=== PATIENT | female | born 1970 | race Caucasian/White ===

== ENCOUNTER → 2017-11-30 | Outpatient (CLI) | payer OTHER ==
--- NOTE | 2017-11-30 10:46 | DIAGNOSTIC IMAGING REPORT ---
SOFT TISS HEAD/NECK-THYROID HISTORY: Thyroid nodule THYROID NODULE COMPARISON: Thyroid ultrasound 12/22/2014 FINDINGS: Right lobe: Isoechoic nodule measuring 1.3 cm at maximum. This is slightly increased in maximum dimension from the prior study at 1 cm. Left lobe: No nodules. Isthmus: No nodules. IMPRESSION: 1. Following description of the percutaneous biopsy procedure, patient elected to defer biopsy stating her preference for a six-month ultrasound follow-up. 2. Patient also expressed the desire for an endocrinology type follow-up. The above report was generated using voice recognition software. It may contain grammatical, syntax or spelling errors. Electronically signed by: Roberth Tee M.D. 11/30/2017 10:44 AM Dictated Date/Time: 11/30/2017 10:40 AM
== END | disposition home or self-care (01) ==
LOC: C.ULTR 09:08
PROVIDERS: ATTEND Family Medicine
DX: E04.1 Nontoxic single thyroid nodule (principal)